=== PATIENT | female | born 2000 | race Two or more races ===

== ENCOUNTER → 2021-07-26 15:31 | Outpatient (BNVA) | payer MEDICAID, SELFPAY | PROVIDERS: Visit Provider Advanced Practice Midwife ==

== ENCOUNTER → 2021-09-17 12:43 | Outpatient (BNVA) | payer OTHER, SELFPAY | PROVIDERS: Visit Provider Advanced Practice Midwife | DX: Z30.46 Encounter for surveillance of implantable subdermal contraceptive (principal); L73.2 Hidradenitis suppurativa | CPT/HCPCS: 99212 ==